=== PATIENT | male | born 1985 | race American Indian/Alaskan Native ===

== ENCOUNTER 2019-02-14 16:25 | Emergency (ER) | payer SELFPAY ==
[2019-02-14 16:39] VITALS: BP 128/65
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
== END 2019-02-14 20:00 | disposition home or self-care (01) ==
LOC: ED 16:25
DX: M54.2 Cervicalgia (principal); M79.601 Pain in right arm; M79.602 Pain in left arm; Z71.1 Person with feared health complaint in whom no diagnosis is made; Z88.8 Allergy status to other drugs, medicaments and biological substances
CPT/HCPCS: 99281

== ENCOUNTER 2019-06-01 13:57 | Emergency (ER) | payer OTHER ==
[2019-06-01 14:08] VITALS: BP 150/95
[2019-06-01] MEDS ORDERED: TETANUS,DIPH,PERTUSS(ACELL) VACCINE 0.5 ML SYRINGE IM ONE (14:21)
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
[2019-06-01] MEDS ORDERED: IBUPROFEN 800 MG TAB PO ONE (15:35)
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
== END 2019-06-01 16:50 | disposition home or self-care (01) ==
LOC: ED 13:57
DX: S01.91XA Laceration without foreign body of unspecified part of head, initial encounter (principal); F17.200 Nicotine dependence, unspecified, uncomplicated; Z79.899 Other long term (current) drug therapy; Z88.8 Allergy status to other drugs, medicaments and biological substances; X99.1XXA Assault by knife, initial encounter; Y93.89 Activity, other specified; Y92.89 Other specified places as the place of occurrence of the external cause; Y99.8 Other external cause status
CPT/HCPCS: 70450; 90471; 90715

== ENCOUNTER 2019-06-09 19:04 | Emergency (ER) | payer SELFPAY ==
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
[2019-06-09 19:49] VITALS: BP 112/87
== END 2019-06-09 19:49 | disposition home or self-care (01) ==
LOC: ED 19:04
DX: Z48.02 Encounter for removal of sutures (principal); Z53.21 Procedure and treatment not carried out due to patient leaving prior to being seen by health care provider